=== PATIENT | male | born 1990 | race Caucasian/White ===

== ENCOUNTER 2018-10-03 08:33 | Emergency (ER) | payer MEDICAID ==
[~2018-10-03] VITALS: Ht 185.4 cm; Wt 84.4 kg
[2018-10-03 08:39] VITALS: BP 134/34
[2018-10-03 10:20] VITALS: BP 130/75
== END 2018-10-03 10:20 | disposition home or self-care (01) ==
LOC: MED 08:33
DX: S00.83XA Contusion of other part of head, initial encounter (principal); F17.210 Nicotine dependence, cigarettes, uncomplicated; V00.131A Fall from skateboard, initial encounter; Y93.51 Activity, roller skating (inline) and skateboarding; Y92.89 Other specified places as the place of occurrence of the external cause; Y99.8 Other external cause status
CPT/HCPCS: 70110; 99283

== ENCOUNTER 2021-10-04 16:17 | Emergency (ER) | payer MEDICAID ==
[~2021-10-04] VITALS: Ht 185.4 cm; Wt 85.7 kg
[2021-10-04 16:30] VITALS: BP 122/53
[2021-10-04] MEDS ORDERED: KETOROLAC 30 MG/ML VIAL IM ONE (17:00)
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
--- NOTE | 2021-10-04 17:40 | NUR ---
PT PLACED IN FROG FINGER SPLINT BY FABRIZIO
[2021-10-04] MEDS ORDERED: IBUP-2213 PO (17:46)
[2021-10-04 18:24] VITALS: BP 122/53
== END 2021-10-04 18:24 | disposition home or self-care (01) ==
LOC: MED 16:17
DX: S63.256A Unspecified dislocation of right little finger, initial encounter (principal); Z79.899 Other long term (current) drug therapy; V00.131A Fall from skateboard, initial encounter; Y93.51 Activity, roller skating (inline) and skateboarding; Y92.89 Other specified places as the place of occurrence of the external cause; Y99.8 Other external cause status
CPT/HCPCS: 26770; 73130; 73140; 96372; 99284; J1885

== ENCOUNTER 2022-06-26 16:59 | Emergency (ER) | payer MEDICAID ==
[~2022-06-26] VITALS: Ht 162.6 cm; Wt 96.6 kg
[~2022-06-26 16:59] MED LIST: IBUP-2213 PO
[2022-06-26 17:04] VITALS: BP 115/60
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
[2022-06-26] MEDS ORDERED: KETOROLAC 30 MG/ML VIAL IM ONE (17:50)
[2022-06-26] MEDS ORDERED: BACITRACIN OINT 500 UNITS/GM PKT TP ONE (17:50)
[2022-06-26] MEDS ORDERED: IBUP-2213 PO (18:35)
[2022-06-26 18:59] VITALS: BP 118/64
--- NOTE | 2022-06-26 18:59 | NUR ---
Patient discharged with v/s stable. Written and verbal after care instructions given and explained. Patient alert, oriented and verbalized understanding of instructions. Ambulatory with steady gait. All questions addressed prior to discharge. ID band removed. Patient advised to follow up with PMD. Rx of IBUPROFEB given. Patient educated on indication of medication including possible reaction and side effects. Opportunity to ask questions provided and answered.
== END 2022-06-26 18:59 | disposition home or self-care (01) ==
LOC: MED 16:59
DX: S43.121A Dislocation of right acromioclavicular joint, 100%-200% displacement, initial encounter (principal); S40.812A Abrasion of left upper arm, initial encounter; W18.30XA Fall on same level, unspecified, initial encounter; Y93.89 Activity, other specified; Y92.89 Other specified places as the place of occurrence of the external cause; Y99.8 Other external cause status
CPT/HCPCS: 73030; 73110; 73130; 90471; 90715; 96372; 99284; J1885

== ENCOUNTER 2023-04-30 14:16 | Emergency (ER) | payer MEDICAID ==
[~2023-04-30] VITALS: Ht 177.8 cm; Wt 75.7 kg
[2023-04-30 14:44] VITALS: BP 118/70; PULSE 79; RESP 17; TEMP 97.4; O2SAT 99
[2023-04-30] MEDS ORDERED: fentaNYL citrate 0.05 MG/ML VIAL IVP ONE (14:50)
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
[2023-04-30] MEDS ORDERED: LIDOCAINE 1% 500 MG/ 50 ML VIAL INJ ONE (15:40)
[2023-04-30] MEDS ORDERED: LIDOCAINE MPF 1% 5 ML ONE (15:49)
[2023-04-30 15:53] VITALS: O2SAT 98
[2023-04-30 16:04] VITALS: BP 118/70; PULSE 79; RESP 17; TEMP 97.4
--- NOTE | 2023-04-30 16:04 | NUR ---
RIGHT ELBOW HAS BEEN SUTURED FOR LACERATION. PT HAS ASYA TDAP VACCINE AND SIGNED CONSENT.
[2023-04-30] MEDS ORDERED: AMPICILLIN/SULBACTAM 3 GM in NACL 0.9% 100 ML IV ONE (16:20)
[2023-04-30] MEDS ORDERED: AMPICILLIN/SULBACTAM 3 GM VIAL ONE (16:28)
[2023-04-30 16:35] LABS: PROTHROMBIN TIME 9.8 secs (10.8-13.4)
[2023-04-30 16:37] LABS: ALBUMIN 4.6 g/dL (3.4-5.0); ANION GAP 14.8 (8-16); CARBON DIOXIDE 25.8 mmol/L (21-32); CREATININE 0.9 mg/dL (0.6-1.3); POTASSIUM 3.6 mmol/L (3.5-5.1); TOTAL BILIRUBIN 0.7 mg/dL (0.0-1.0)
--- NOTE | 2023-04-30 17:07 | NUR ---
long arm posterior applied to r arm with sharon wrap x 3. + cms. sling applied. + cms.
[2023-04-30 17:13] LABS: BASOPHILS % (AUTO) 0.3 % (0.0-2.0); EOSINOPHILS % (AUTO) 0.1 % (0.0-4.0); HEMATOCRIT 42.5 % (36-52); HEMOGLOBIN 14.3 g/dL (12.0-18.0); LYMPHOCYTES # (AUTO) 1.4 K/uL (2.0-11.5); LYMPHOCYTES % (AUTO) 8.6 % (20.5-51.1); MEAN CORPUSCULAR HEMOGLOBIN 30 pg (27-31); MEAN CORPUSCULAR HGB CONC 34 g/dL (33-37); MEAN CORPUSCULAR VOLUME 87.7 fL (80-94); MONOCYTES # (AUTO) 1.6 K/uL (0.8-1.0); PLATELET COUNT (AUTO) 239 K/uL (140-450); RED BLOOD CELL COUNT(AUTO) 4.84 MIL/uL (4.20-6.10); WHITE BLOOD COUNT (AUTO) 16.1 K/uL (4.8-10.8)
[2023-04-30] MEDS ORDERED: IBUP-2213 PO (17:24)
[2023-04-30] MEDS ORDERED: ACET-8905 PO ×2 (17:24→17:25)
[2023-04-30] MEDS ORDERED: AMOX1TAB8 PO (17:24)
[2023-04-30] MEDS ORDERED: ONDA-188 PO (17:24)
--- NOTE | 2023-04-30 18:43 | NUR ---
Pt has been updated on plan of care. Pt waiting for surgical consult.
--- NOTE | 2023-04-30 19:12 | NUR ---
Pt report given to LARRY ANDREW. Transfer of care at 1930.
--- NOTE | 2023-04-30 19:32 | NUR ---
REPORT RECEIVED FROM VALERIO JUAREZ. PT LYING IN BED WITH NO S/S DISTRESS AT THIS TIME. PT STATES PAIN 5/10. CALL LIGHT WITHIN REACH.
[2023-04-30 19:35] VITALS: O2SAT 99
--- NOTE | 2023-04-30 20:34 | NUR ---
Patient discharged with v/s stable. Written and verbal after care instructions given and explained. Patient verbalized understanding. Ambulatory with steady gait. All questions addressed prior to discharge. Advised to follow up with PMD.
== END 2023-04-30 20:34 | disposition home or self-care (01) ==
LOC: MED 14:16
DX: S02.69XB Fracture of mandible of other specified site, initial encounter for open fracture (principal); S43.101A Unspecified dislocation of right acromioclavicular joint, initial encounter; S51.011A Laceration without foreign body of right elbow, initial encounter; Z79.899 Other long term (current) drug therapy; W18.30XA Fall on same level, unspecified, initial encounter; Y93.89 Activity, other specified; Y92.89 Other specified places as the place of occurrence of the external cause; Y99.8 Other external cause status
CPT/HCPCS: 12001; 36415; 70450; 70486; 73030; 73080; 80053; 85025; 85610; 85730; 90471; 90715; 96365; 96375; 99291; J0295; J2001; J3010; 99285

== ENCOUNTER 2023-08-11 00:15 | Emergency (ER) | payer MEDICAID ==
[~2023-08-11] VITALS: Ht 185.4 cm; Wt 84.8 kg
[~2023-08-11 00:15] MED LIST changes: +ACET-8905 PO; +AMOX1TAB8 PO; +ONDA-188 PO
[2023-08-11 00:18] VITALS: BP 123/57; PULSE 88; RESP 16; TEMP 97.4; O2SAT 98
[2023-08-11] MEDS ORDERED: ACETAMINOPHEN EXTRA STRENGTH 500 MG TAB PO ONE (00:55)
[2023-08-11] MEDS ORDERED: PENICILLIN G POTASSIUM 2 MU in NACL 0.9% 50 ML IV ONE (01:55)
[2023-08-11] MEDS ORDERED: ACET-10509 PO (02:08)
== END 2023-08-11 02:22 | disposition home or self-care (01) ==
LOC: MED 00:15
DX: S00.83XA Contusion of other part of head, initial encounter (principal); W01.198A Fall on same level from slipping, tripping and stumbling with subsequent striking against other object, initial encounter; Y93.89 Activity, other specified; Y92.89 Other specified places as the place of occurrence of the external cause; Y99.8 Other external cause status
CPT/HCPCS: 70450; 70486; 99284; J2540

== ENCOUNTER 2023-11-14 01:15 | Emergency (ER) | payer MEDICAID, OTHER ==
[~2023-11-14] VITALS: Ht 185.4 cm; Wt 86.2 kg
[~2023-11-14 01:15] MED LIST changes: +ACET-10509 PO
[2023-11-14 01:40] VITALS: BP 139/75; PULSE 76; RESP 18; TEMP 97.6; O2SAT 98
[2023-11-14] MEDS ORDERED: LIDOCAINE MPF 1% 5 ML ONE (02:54)
[2023-11-14] MEDS ORDERED: cefTRIAXone 1,000 MG VIAL ONE (02:54)
[2023-11-14] MEDS: ALBUTEROL 0.083% 2.5 MG/3 ML NEBU INH ONE (02:56)
[2023-11-14 03:01] VITALS: PULSE 66; RESP 16; O2SAT 99
[2023-11-14] MEDS: cefTRIAXone 1,000 MG in LIDOCAINE MPF 1% 2.1 ML IM ONE (03:31)
[2023-11-14] MEDS ORDERED: AMOX1TAB8 PO (03:59)
[2023-11-14] MEDS ORDERED: ALBU0.0912 INH (03:59)
[2023-11-14] MEDS ORDERED: DEC4 PO (03:59)
== END 2023-11-14 04:03 | disposition home or self-care (01) ==
LOC: MED 01:15
DX: J20.9 Acute bronchitis, unspecified (principal); F17.210 Nicotine dependence, cigarettes, uncomplicated; Z71.6 Tobacco abuse counseling; Z79.899 Other long term (current) drug therapy; Z79.1 Long term (current) use of non-steroidal anti-inflammatories (NSAID); Z79.2 Long term (current) use of antibiotics
CPT/HCPCS: 94640; 96372; 99283; J0696; J2001; J7613